=== PATIENT | female | born 1965 | race Caucasian/White ===

== ENCOUNTER 2018-09-10 18:49 | Emergency (ER) | payer OTHER ==
[~2018-09-10] VITALS: Ht 172.7 cm; Wt 96.5 kg
[2018-09-10] MEDS ORDERED: SODIUM CHLORIDE FLUSH 10ML SYR IVF ONE (19:30)
[2018-09-10 19:43] LABS: BASOPHILS # (AUTO) 0.04 x10^3/uL (0-0.1); BASOPHILS % (AUTO) 0 % (0-1); EOSINOPHILS # (AUTO) 0.09 x10^3/uL (0-0.4); EOSINOPHILS % (AUTO) 1 % (1-7); LYMPHOCYTES # (AUTO) 1.88 x10^3/uL (1-3.4); LYMPHOCYTES % (AUTO) 15 % (22-44); MD NO; MEAN CORPUSCULAR HEMOGLOBIN 32.1 pg (27.0-34.8); MEAN CORPUSCULAR HGB CONC 33.3 g/dL (32.4-35.8); MEAN CORPUSCULAR VOLUME 96.3 fL (80-100); MEAN PLATELET VOLUME 11.6 fL (7.4-10.4); MONOCYTES # (AUTO) 0.54 x10^3/uL (0.2-0.8); MONOCYTES % (AUTO) 4 % (2-9); NEUTROPHILS # (AUTO) 10.21 x10^3/uL (1.8-6.8); NEUTROPHILS % (AUTO) 80 % (42-75); PLATELET COUNT 237 x10^3/uL (130-400); RED BLOOD COUNT 4.31 x10^6/uL (3.82-5.3); RED CELL DISTRIBUTION WIDTH 13.3 % (9.6-15.2)
[2018-09-10 20:00] LABS: ANION GAP 5 mmol/L (5-15); CALCIUM 9.2 mg/dL (8.5-10.1); CHLORIDE 106 mmol/L (98-107); CREATININE 0.75 mg/dL (0.55-1.02)
--- NOTE | 2018-09-10 20:38 | NUR ---
assessment made. ERP at bedside.
[2018-09-10] MEDS ORDERED: MORPHINE SULFATE 4 MG/ML, 1ML ONE (20:51)
[2018-09-10] MEDS ORDERED: morphine SULFATE 10 MG/ML, 1ML IVPush ONE (21:00)
--- NOTE | 2018-09-10 21:02 | NUR ---
IV PLACED. MEDICATED FOR PAIN. PATIENT TO CT SCAN.
[2018-09-10] MEDS ORDERED: OMNIPAQUE 350 MG/ML, 100ML BOTTLE ONE (21:10)
--- NOTE | 2018-09-10 21:23 | NUR ---
patient back from CT scan. awaiting result.
[2018-09-10 21:53] LABS: MICROSCOPIC NOT IND
[2018-09-10 21:55] LABS: CULTURE INDICATED? NO
--- NOTE | 2018-09-10 22:12 | NUR ---
ERP at bedside for re-evaluation.
[2018-09-10] MEDS ORDERED: PROMETHAZINE 25 MG/ML, 1ML ONE (22:25)
[2018-09-10] MEDS ORDERED: PROMETHAZINE 25 MG/ML, 1ML IM ONE (22:30)
[2018-09-10 22:47] VITALS: BP 130/63
--- NOTE | 2018-09-10 22:47 | NUR ---
patient discharged with instruction. verbalized understanding.
== END 2018-09-10 22:49 | disposition home or self-care (01) ==
LOC: ED 21:16
DX: K76.9 Liver disease, unspecified (principal); R10.31 Right lower quadrant pain; D25.9 Leiomyoma of uterus, unspecified
CPT/HCPCS: 36415; 74177; 80048; 81003; 82040; 85025; 96372; 96374; 99284; J2270; J2550; Q9967

== ENCOUNTER 2020-02-11 15:30 | Emergency (ER) | payer OTHER ==
[~2020-02-11] VITALS: Ht 172.7 cm; Wt 100.0 kg
[2020-02-11 15:43] VITALS: BP 163/81
== END 2020-02-11 17:16 | disposition home or self-care (01) ==
LOC: ED 16:53
DX: M79.662 Pain in left lower leg (principal); M79.89 Other specified soft tissue disorders; F17.200 Nicotine dependence, unspecified, uncomplicated
CPT/HCPCS: 99284